=== PATIENT | male | born 1960 | race African-American/Black ===

== ENCOUNTER 2017-11-12 09:12 | Emergency (ER) | payer MEDICAID ==
[~2017-11-12] VITALS: Ht 180.3 cm; Wt 125.0 kg
[2017-11-12] MEDS ORDERED: LIDOCAINE HCL 1% 20ML VIAL (Pyxis) INJ MC ONE (10:45)
[2017-11-12] MEDS ORDERED: BACITRACIN ZINC OINT UDPKT TOP ONE (10:45)
[2017-11-12 12:45] VITALS: BP 127/75
== END 2017-11-12 13:04 | disposition home or self-care (01) ==
LOC: ER 09:12
DX: L03.011 Cellulitis of right finger (principal); E11.9 Type 2 diabetes mellitus without complications
CPT/HCPCS: 10060; 99283; J3490; X7700; Z7610